=== PATIENT | female | born 1970 | race American Indian/Alaskan Native ===

== ENCOUNTER 2017-10-08 07:02 | Outpatient (CLI) | payer BC ==
--- NOTE | 2017-10-08 12:24 | Mammography Report ---
Bilateral digital mammogram with CAD. Comparison study is dated October 04, 2016. Findings: The breasts are fatty replaced. In the lower inner quadrant of the left breast, there is a new small asymmetry. No suspicious calcifications or architectural distortion. Impression: New left asymmetry. BI-RADS code:. Recommendation: Spot compression images and ultrasound if needed.
== END 2017-10-08 07:03 | disposition home or self-care (01) ==
LOC: MAMMO 07:02
PROVIDERS: ATTEND Obstetrics & Gynecology
DX: Z12.31 Encounter for screening mammogram for malignant neoplasm of breast (principal)
CPT/HCPCS: 77067; G0202

== ENCOUNTER 2019-01-08 09:52 | Outpatient (CLI) | payer BC ==
--- NOTE | 2019-01-08 14:32 | Mammography Report ---
BILATERAL DIGITAL SCREENING MAMMOGRAM with CAD: 01/08/19 09:52:00 CLINICAL: Routine screening. COMPARISON: FINDINGS: There are bilateral scattered areas of fibroglandular density.No mass, architectural distortion or suspicious calcifications. IMPRESSION: No mammographic evidence of malignancy. BI-RADS CATEGORY: 1 -- Negative RECOMMENDATION: Routine mammographic screening in one year. COMMENT: Patient follow-up letters are generated by our [employer] application.
== END 2019-01-08 09:53 | disposition home or self-care (01) ==
LOC: MAMMO 09:52
PROVIDERS: ATTEND Obstetrics & Gynecology
DX: Z12.31 Encounter for screening mammogram for malignant neoplasm of breast (principal)
CPT/HCPCS: 77067